=== PATIENT | male | born 1990 | race Two or more races ===

== ENCOUNTER 2020-07-31 10:30 | Emergency (ER) | payer SELFPAY ==
[~2020-07-31] VITALS: Ht 172.7 cm; Wt 95.3 kg
[2020-07-31 11:02] VITALS: BP 130/82
== END 2020-07-31 12:03 | disposition home or self-care (01) ==
LOC: ER 10:30
DX: J20.9 Acute bronchitis, unspecified (principal); Z20.828 Contact with and (suspected) exposure to other viral communicable diseases
CPT/HCPCS: 36415; 71045; 87426

== ENCOUNTER 2020-09-03 18:15 | Emergency (ER) | payer OTHER, SELFPAY ==
[~2020-09-03] VITALS: Ht 172.7 cm; Wt 90.7 kg
[2020-09-03 18:36] VITALS: BP 169/84
== END 2020-09-03 21:00 | disposition home or self-care (01) ==
LOC: ER 18:15
DX: J45.20 Mild intermittent asthma, uncomplicated (principal)
CPT/HCPCS: 36415; 71045; 87426

== ENCOUNTER 2023-07-29 16:43 | Emergency (ER) | payer MEDICAID, OTHER ==
[~2023-07-29] VITALS: Ht 172.7 cm; Wt 101.6 kg
[2023-07-29] MEDS ORDERED: KETOROLAC TROMETH 60MG/2ML VIAL IM ONE (17:15)
[2023-07-29 18:54] LABS: Urine Bacteria MOD /hpf (None Seen); Urine Blood Negative /uL (Negative); Urine Clarity Clear (Clear); Urine Color Yellow (Yellow); Urine Mucus FEW (None Seen); Urine Protein, UAD TRACE (Negative); Urine Specific Gravity 1.023 (1.001-1.035); Urine Sperm PRESENT /hpf (None Seen); Urine Urobilinogen Normal (Negative); Urine WBC 1 /hpf (0 - 3); Urine pH 5.5 (5.0-8.0)
[2023-07-29] MEDS ORDERED: ACET500T58 PO (19:13)
[2023-07-29] MEDS ORDERED: IBUP-1455 PO (19:13)
[2023-07-29 20:02] VITALS: BP 133/90; PULSE 86; RESP 18; TEMP 98.3; O2SAT 98
== END 2023-07-29 20:03 | disposition home or self-care (01) ==
LOC: ER 16:43
DX: S39.012A Strain of muscle, fascia and tendon of lower back, initial encounter (principal); J45.909 Unspecified asthma, uncomplicated; Z88.0 Allergy status to penicillin; X58.XXXA Exposure to other specified factors, initial encounter; Y93.89 Activity, other specified; Y92.89 Other specified places as the place of occurrence of the external cause; Y99.8 Other external cause status
CPT/HCPCS: 72100; 81001; 96372; 99284; J1885

== ENCOUNTER 2024-04-16 21:08 | Emergency (ER) | payer SELFPAY ==
[~2024-04-16] VITALS: Ht 172.7 cm; Wt 96.7 kg
[~2024-04-16 21:08] MED LIST: ACET500T58 PO; IBUP-1455 PO
[2024-04-17] MEDS: KETOROLAC TROMETH 60MG/2ML VIAL IM ONE (00:39)
[2024-04-17] MEDS: TETANUS-DIPTH-ACEL PERTUSSIS 0.5ML SYR Tdap IM ONE (00:41)
[2024-04-17] MEDS ORDERED: AUG875T PO (00:47)
[2024-04-17] MEDS: BACITRACIN TOP OINT 1 UD PKG TOP ONE (01:29)
[2024-04-17 01:30] VITALS: BP 148/87; PULSE 87; RESP 18; TEMP 98.5; O2SAT 98
== END 2024-04-17 01:43 | disposition home or self-care (01) ==
LOC: ER 21:08
DX: S81.831A Puncture wound without foreign body, right lower leg, initial encounter (principal); J45.909 Unspecified asthma, uncomplicated; Z88.0 Allergy status to penicillin; Z79.899 Other long term (current) drug therapy; W54.0XXA Bitten by dog, initial encounter; Y93.89 Activity, other specified; Y92.89 Other specified places as the place of occurrence of the external cause; Y99.8 Other external cause status
CPT/HCPCS: 90471; 90715; 96372; 99284; J1885